=== PATIENT | male | born 1935 | race African-American/Black ===

== ENCOUNTER 2021-05-27 10:45 | Outpatient (CLI) | payer MEDICARE, OTHER | END 2021-05-27 10:46 | disposition home or self-care (01) | LOC: CSHWCC 10:45 | PROVIDERS: ATTEND Nurse Practitioner Family | DX: I89.0 Lymphedema, not elsewhere classified (principal); R60.0 Localized edema; I50.9 Heart failure, unspecified; E11.59 Type 2 diabetes mellitus with other circulatory complications; J44.9 Chronic obstructive pulmonary disease, unspecified; N28.9 Disorder of kidney and ureter, unspecified; I70.90 Unspecified atherosclerosis | CPT/HCPCS: 99213; G0463 ==

== ENCOUNTER 2021-06-03 11:03 | Outpatient (CLI) | payer MEDICARE, OTHER | END 2021-06-03 11:04 | disposition home or self-care (01) | LOC: CSHWCC 11:03 | PROVIDERS: ATTEND Nurse Practitioner Family | DX: E11.59 Type 2 diabetes mellitus with other circulatory complications (principal); I50.9 Heart failure, unspecified; I70.90 Unspecified atherosclerosis; I89.0 Lymphedema, not elsewhere classified; J44.9 Chronic obstructive pulmonary disease, unspecified; N28.9 Disorder of kidney and ureter, unspecified; R60.0 Localized edema ==

== ENCOUNTER 2021-06-10 10:12 | Outpatient (CLI) | payer MEDICARE, OTHER | END 2021-06-10 10:13 | disposition home or self-care (01) | LOC: CSHWCC 10:12 | PROVIDERS: ATTEND Nurse Practitioner Family | DX: I89.0 Lymphedema, not elsewhere classified (principal); E11.59 Type 2 diabetes mellitus with other circulatory complications; I50.9 Heart failure, unspecified; I70.90 Unspecified atherosclerosis; J44.9 Chronic obstructive pulmonary disease, unspecified; N28.9 Disorder of kidney and ureter, unspecified; R60.0 Localized edema ==

== ENCOUNTER 2021-06-12 09:03 | Outpatient (CLI) | payer MEDICARE, OTHER | END 2021-06-12 09:04 | disposition home or self-care (01) | LOC: CSHWCC 09:03 | PROVIDERS: ATTEND Nurse Practitioner Family | DX: I89.0 Lymphedema, not elsewhere classified (principal); E11.59 Type 2 diabetes mellitus with other circulatory complications; I50.9 Heart failure, unspecified; I70.90 Unspecified atherosclerosis; J44.9 Chronic obstructive pulmonary disease, unspecified; N28.9 Disorder of kidney and ureter, unspecified; R60.0 Localized edema | CPT/HCPCS: 29581; 99213; G0463 ==

== ENCOUNTER 2021-06-15 09:41 | Outpatient (CLI) | payer MEDICARE, OTHER | END 2021-06-15 09:42 | disposition home or self-care (01) | LOC: CSHWCC 09:41 | PROVIDERS: ATTEND Nurse Practitioner Family | DX: I89.0 Lymphedema, not elsewhere classified (principal); E11.59 Type 2 diabetes mellitus with other circulatory complications; I50.9 Heart failure, unspecified; I70.90 Unspecified atherosclerosis; J44.9 Chronic obstructive pulmonary disease, unspecified; N28.9 Disorder of kidney and ureter, unspecified; R60.0 Localized edema; S90.822A Blister (nonthermal), left foot, initial encounter ==

== ENCOUNTER 2021-07-06 13:57 | Outpatient (CLI) | payer MEDICARE, OTHER | END 2021-07-06 13:58 | disposition home or self-care (01) | LOC: CSHWCC 13:57 | PROVIDERS: ATTEND Nurse Practitioner Family | DX: S90.822D Blister (nonthermal), left foot, subsequent encounter (principal); R60.0 Localized edema; E11.59 Type 2 diabetes mellitus with other circulatory complications; I70.90 Unspecified atherosclerosis; I50.9 Heart failure, unspecified; J44.9 Chronic obstructive pulmonary disease, unspecified; N28.9 Disorder of kidney and ureter, unspecified; I89.0 Lymphedema, not elsewhere classified | CPT/HCPCS: 97139; G0463; 99213 ==

== ENCOUNTER 2021-07-22 14:21 | Outpatient (CLI) | payer MEDICARE, OTHER | END 2021-07-22 14:22 | disposition home or self-care (01) | LOC: CSHWCC 14:21 | PROVIDERS: ATTEND Nurse Practitioner Family | DX: R60.0 Localized edema (principal); E11.59 Type 2 diabetes mellitus with other circulatory complications; I50.9 Heart failure, unspecified; I70.90 Unspecified atherosclerosis; J44.9 Chronic obstructive pulmonary disease, unspecified; N28.9 Disorder of kidney and ureter, unspecified ==

== ENCOUNTER 2021-12-01 14:48 | Outpatient (CLI) | payer MEDICARE, OTHER | END 2021-12-01 14:49 | disposition home or self-care (01) | LOC: CSHWCC 14:48 | PROVIDERS: ATTEND Nurse Practitioner Family | DX: S91.302D Unspecified open wound, left foot, subsequent encounter (principal); R60.0 Localized edema | CPT/HCPCS: 11042; 97139; G0463; 99212 ==

== ENCOUNTER 2021-12-11 10:30 | Outpatient (CLI) | payer MEDICARE, OTHER | END 2021-12-11 10:31 | disposition home or self-care (01) | LOC: CSHWCC 10:30 | PROVIDERS: ATTEND Nurse Practitioner Family | DX: S91.302D Unspecified open wound, left foot, subsequent encounter (principal); R60.0 Localized edema | CPT/HCPCS: 99212; G0463 ==

== ENCOUNTER 2021-12-25 10:00 | Outpatient (CLI) | payer MEDICARE, OTHER | END 2021-12-25 10:01 | disposition home or self-care (01) | LOC: CSHWCC 10:00 | PROVIDERS: ATTEND Nurse Practitioner Family | DX: R60.0 Localized edema (principal) | CPT/HCPCS: 29581; 97139; G0463; 99212 ==

== ENCOUNTER 2022-01-14 10:17 | Outpatient (CLI) | payer MEDICARE, OTHER | END 2022-01-14 10:18 | disposition home or self-care (01) | LOC: CSHWCC 10:17 | PROVIDERS: ATTEND Nurse Practitioner Family | DX: S91.302D Unspecified open wound, left foot, subsequent encounter (principal); R60.0 Localized edema ==

== ENCOUNTER 2022-01-28 12:54 | Outpatient (CLI) | payer MEDICARE, OTHER | END 2022-01-28 12:55 | disposition home or self-care (01) | LOC: CSHWCC 12:54 | PROVIDERS: ATTEND Nurse Practitioner Family | DX: R60.0 Localized edema (principal) ==

== ENCOUNTER 2022-02-25 12:51 | Outpatient (CLI) | payer MEDICARE | END 2022-02-25 12:52 | disposition home or self-care (01) | LOC: CSHWCC 12:51 | PROVIDERS: ATTEND Nurse Practitioner Family | DX: R60.0 Localized edema (principal) ==